=== PATIENT | male | born 1970 | race Asian ===

== ENCOUNTER 2024-05-14 22:17 | Emergency (ER) | payer OTHER, SELFPAY ==
[2024-05-14 22:19] VITALS: BP 143/78
[2024-05-14 22:22] VITALS: BP 143/78
[2024-05-14 22:31] VITALS: BMI 35.3
[2024-05-14 22:35] LABS: Glucose - Point of Care 104 mg/dl (70-99)
--- NOTE | 2024-05-14 22:51 | ED.GENMED ---
History of Present Illness
General
Chief Complaint: Alcohol Problem
Source: patient
Time Seen by Provider: 05/14/24 22:22
History of Present Illness
History of Present Illness:
53-year-old male brought to the emergency by ambulance for altered mental status. Paramedics state they were called to a home where there were several males doing shots. Evidently this patient drank too much alcohol and became unresponsive. No
report of drug use. Patient is unable to provide any history due to his decreased mental status.
Past History
Past History
ED Past Medical History: None
ED Past Surgical History: None
Social History
Tobacco: Smoker
Alcohol: Occasional
Drug: None
Personal:
Living: with family
Phy Exam
Physical Exam
Physical Exam:
General: Obtunded, does respond to painful stimulus
Vitals: Afebrile, normal pulse ox
Head: Atraumatic
Eyes: Pupils equal at 4 mm and reactive, EOMI
Throat: Airway intact, no exudates
Neck: Trachea midline
Lungs: Clear and equal b/l
Heart: Regular rate, no murmurs
Abd: Soft, Nontender, No pulsatile mass
Neuro: No obvious focal weakness, patient does not move on command
Skin: Warm, dry, no rash
Extremities: pulses equal b/l, no edema
Scores
Withdrawal Assessment of Alcohol
Withdrawal Assessment Completed?: Not applicable
Course
Orders/Labs/Results
Orders:
Orders
05/14/24 22:49
Electrocardiogram (*1) Stat
Reason for Study: Other
Other Reason for Exam: overdose
EKG- Treatment ONCE
0.9% Sodium Chloride 1000 ml [Nss] 1,000 ml IV BOLUS
Thiamine Injection 200 mg IV NOW STA
05/14/24 23:15
Acetaminophen Urgent
Alcohol Urgent
Complete Blood Count/With Diff Urgent
Comprehensive Metabolic Panel Urgent
Manual Differential Urgent
Prothrombin Time Urgent
Salicylate Urgent
05/15/24 01:29
EKG [Electrocardiogram (*1)] Urgent
Reason for Study: Chest Pain
EKG- Treatment ONCE
Abnormal Lab Results
05/14/24 05/14/24
22:34 23:15
Glucose 114 H mg/dl
(70-99)
ALT 107 H U/L
(0-50)
Salicylates < 1.0 L mg/dl
(2.0-20.0)
Acetaminophen < 10 L ug/ml
(10-30)
POC Glucose 104 H mg/dl
(70-99)
05/14/24 23:15
05/14/24 23:15
Vital Signs
Initial and Last Documented VS:
Initial Vital Signs
Temp Pulse Resp BP Pulse Ox
98.1 F 105 16 143/78 92
05/14/24 22:19 05/14/24 22:19 05/14/24 22:19 05/14/24 22:19 05/14/24 22:19
Last Documented Vital Signs
Temp Pulse Resp BP Pulse Ox
98.1 F 96 16 131/79 95
05/14/24 22:19 05/15/24 01:30 05/15/24 01:30 05/15/24 01:30 05/15/24 01:15
MDM/Problems Addressed
Differential Diagnosis Includes:
Alcohol intoxication, other sedating medication, intracranial abnormality
MDM/Problems Addressed:
Patient presents sleeping and not arousable except for strong sternal rub. He has a nasal trumpet in place for medics. However over the course of an hour he became much more awake and after a couple hours his conversing with his family. He
complained of some left-sided chest discomfort. This might be related to my sternal rub. EKG x 2 shows no acute abnormalities.
*Pulse Oximetry
Patient hypoxic: no
*Critical Care Note
Total Time (30-74mins, 75-104mins- exclusive of procedures): Not Applicable
ED Attending Note
-
Portions of this chart may have been created with voice recognition software.� Occasional wrong word or��sound alike� substitutions may have occurred due to the inherent limitations of voice recognition software.
Discharge Plan
Departure
Patient Disposition: Home (Routine Discharge)
Date of Disposition: 05/15/24
Time of Disposition: 01:21
Patient with high blood pressure during this ER visit?: No
Condition: Good
Discharge Problem:
Alcohol intoxication
Instructions: Alcohol intoxication - ED discharge instructions, BLOOD PRESSURE
Prescriptions:
No Action
magnesium Tablet
1 tab PO DAILY
Referrals:
NONE,* [Family Provider] -
Interventions
Interventions:
*Risk Screen - Suicide Last Done: 05/14/24 22:29
*General Assessment Last Done: 05/14/24 22:29
*Neglect/Abuse Screening Last Done: 05/14/24 22:29
*ED COVID-19 Vaccine History Last Done: 05/14/24 22:29
ED- Neurological Assessment Last Done: 05/14/24 23:24
ED-Psychological Assessment Last Done: 05/14/24 22:36
Discharge Date and Time
Print Language: [id number]
[2024-05-14 23:00] VITALS: BP 144/85
[2024-05-14 23:30] VITALS: BP 131/88
[2024-05-14] MEDS: THIAMINE INJECTION 200 MG IV (23:30)
[2024-05-14] MEDS: NSS 1000 IV (23:33)
[2024-05-14 23:36] LABS: Hematocrit 44.2 % (39.0-52.0); Hemoglobin 15.3 g/dL (13.0-18.0); Mean Corp Hgb Conc. 34.6 g/dL (33.0-37.0); Mean Corpuscular Hgb 29.5 pg (27.0-31.0); Mean Corpuscular Volume 85.2 fL (80.0-94.0); Mean Platelet Volume 9.1 fL (7.4-10.4); Platelet Count 278 10^3/uL (130-400); Red Blood Cell Count 5.19 10^6/uL (4.70-6.10); Red Cell Dist. Width 12.7 % (11.5-14.5); White Blood Cell Count 10.7 10^3/uL (4.8-10.8)
[2024-05-14 23:37] LABS: PT 12.7 Sec (11.4-14.6)
[2024-05-14 23:46] LABS: ALT (SGPT) 107 U/L (0-50); AST (SGOT) 46 U/L (17-59); Acetaminophen < 10 ug/ml (10-30); Albumin 4.5 g/dl (3.5-5.0); Alcohol 187 mg/dl; Alkaline Phosphatase 58 U/L (38-126); Blood Urea Nitrogen 13 mg/dl (9-20); Carbon Dioxide 24 mmol/L (22-30); Chloride 106 mmol/L (98-107); Estimated Creatinine Clearance 103 ml/min; Glucose 114 mg/dl (70-99); Potassium 3.6 mmol/L (3.5-5.1); Salicylate < 1.0 mg/dl (2.0-20.0); Sodium 143 mmol/L (135-145); Total Bilirubin 0.5 mg/dl (0.2-1.3); Total Protein 7.8 g/dl (6.3-8.2); eGFR > 60.00
[2024-05-15] VITALS: BP 134/83
[2024-05-15 00:01] LABS: Band Neutrophils 0 % (0-3); Eosinophils 1 % (0-6); Lymphocytes 50 % (20-51); Monocytes 2 % (2-9); Segmented Neutrophils 47 % (42-75)
[2024-05-15 00:02] LABS: Normal RBC Morphology Yes; Platelets Checked Yes; Total Cells Counted 100
[2024-05-15 00:30] VITALS: BP 134/79
[2024-05-15 01:00] VITALS: BP 126/70
[2024-05-15 01:30] VITALS: BP 131/79
== END 2024-05-15 01:50 | disposition home or self-care (01) ==
LOC: EMR 22:17
PROVIDERS: EMERGENCY PHYSICIAN Emergency Medicine
DX: F10.129 Alcohol abuse with intoxication, unspecified (principal); R07.89 Other chest pain; F17.200 Nicotine dependence, unspecified, uncomplicated
CPT/HCPCS: 99284; 96374; 96361; 80053; 80143; 80179; 82077; 82962; 85025; 85610; 93005